=== PATIENT | male | born 1955 | race Caucasian/White ===

== ENCOUNTER 2020-12-01 09:07 | Outpatient (CLI) | payer MEDICARE, SELFPAY ==
--- NOTE | ~2020-12-01 | XR_ITS ---
XR knee RT 3V, XR knee LT 3V 12/01/2020 09:59 Indication: Bilateral knee pain Procedure: 3 views each knee Comparison: No prior studies for comparison. Findings: There is mild bilateral tricompartment osteoarthritis of the knees. No fracture or traumati c malalignment. No significant joint effusion. No focal soft tissue abnormality. Impression: 1: Mild osteoarthritis of the knees. Reviewed, dictated and finalized at location A. Impression: 1: Mild osteoarthritis of the knees. Impression: 1: Mild osteoarthritis of the knees.
--- NOTE | 2020-12-01 09:42 | ECG_ITS ---
Measurements Intervals [place] Rate: 75 P: 51 WI: 170 QRS: -58 QRSD: 92 T: 57 QT: 385 QTc: 432 Interpretive Statements SINUS RHYTHM LEFT ANTERIOR FASCICULAR BLOCK ABNORMAL ECG Electronically Signed On 12-01-2020 10:10:51 CDT by Turner Palumbo D.O.
[2020-12-01 09:43] LABS: Basophils Absolute Auto 0.1 K/mm3 (0.0-0.1); Basophils Percent Auto 0.8 % (0.2-1.2); Eosinophils Absolute Auto 0.3 K/mm3 (0-0.3); Hematocrit 43.9 % (42.0-52.0); Hemoglobin 15.2 g/dL (14.0-18.0); Immature Granulocyte Absolute 0.03 K/mm3 (0.00-0.031); Immature Granulocyte Percent A 0.4 % (0-0.5); Lymphocytes Absolute Auto 2.09 K/mm3 (0.9-3.2); Lymphocytes Percent Auto 28.1 % (18.3-44.2); Mean Corpuscular HGB Conc 34.6 g/dl (32-36); Mean Corpuscular Hemoglobin 30.6 pg (26-34); Mean Corpuscular Volume 88.3 fl (80-100); Mean Platelet Volume 10.8 fl (7.4-10.4); Monocytes Absolute Auto 0.5 K/mm3 (0.1-0.6); Monocytes Percent Auto 6.7 % (2.6-8.5); Neutrophils Absolute Auto 4.5 K/mm3 (1.3-6.7); Platelet Count Result 191 k/mm3 (150-375); Red Blood Count 4.97 M/mm3 (4.6-6.20); Red Cell Distribution Width 13.4 % (11.5-14.5); White Blood Count 7.5 K/mm3 (4.5-10.0)
[2020-12-01 09:59] LABS: Alanine Aminotransferase 44 U/L (4-50); Albumin Level 4.4 g/dL (3.5-5.1); Alkaline Phosphatase 53 U/L (38-126); Anion Gap 6 mmol/L (8-16); Aspartate Amino Transferase 38 U/L (17-59); Bilirubin,Total 0.6 mg/dL (0.2-1.3); Blood Urea Nitrogen 10 mg/dL (9-20); Calcium 9.1 mg/dL (8.4-10.2); Carbon Dioxide 30 mmol/L (22-30); Chloride 106 mmol/L (98-107); Cholesterol 214 mg/dL (0-200); Estimated Glomerular Filt Rate > 60; Glucose 118 mg/dL (75-110); HDL Direct 32 mg/dL; Sodium 142 mmol/L (137-145); Triglycerides 142 mg/dL (<150)
[2020-12-01 10:10] LABS: LDL Cholesterol Direct 152 mg/dL
[2020-12-01 10:14] LABS: Creatinine Urine 283.3 mg/dL
[2020-12-01 10:19] LABS: MALB Creatinine Ratio 8.6 mg/g (0-30); Microalbumin Urine Random 24.4 mg/L (0-16.7)
[2020-12-01 10:30] LABS: Vitamin D 25 Hydroxy 31.8 ng/mL
[2020-12-01 10:31] LABS: Hemoglobin A1C 5.6 % (<5.7)
[2020-12-01 10:32] LABS: Prostate Specific Antigen 1.7 ng/mL (< OR = 4.0)
== END 2020-12-01 09:08 | disposition home or self-care (01) ==
PROVIDERS: PCP Internal Medicine; Visit Provider Internal Medicine
DX: Z12.5 Encounter for screening for malignant neoplasm of prostate (principal); R07.89 Other chest pain; E78.5 Hyperlipidemia, unspecified; M19.90 Unspecified osteoarthritis, unspecified site; R73.01 Impaired fasting glucose; E55.9 Vitamin D deficiency, unspecified; I44.4 Left anterior fascicular block; M17.0 Bilateral primary osteoarthritis of knee; I10 Essential (primary) hypertension
CPT/HCPCS: 36415; 73562; 80053; 80061; 82043; 82306; 83036; 84153; 84443; 85025; 93005; G0103

== ENCOUNTER 2020-12-21 08:15 | Outpatient (CLI) | payer MEDICARE, SELFPAY ==
--- NOTE | ~2020-12-21 | NM_ITS ---
EXAMINATION: NM yessenia stress w perfusion DATE: 12/21/2020 10:30 INDICATION: Chest pain. TECHNIQUE: Rest images were obtained following intravenous administration of 11.170 mCi Tc99m tetrofo smin (Myoview). The patient was infused intravenously with Lexiscan (regadenoson). Then, 33.5 mCi Tc9 9m tetrofosmin (Myoview) was administered intravenously, and stress images were obtained. Data was re constructed into short axis and horizontal and vertical long axis SPECT images. Gated SPECT images we re also obtained. COMPARISON: None. FINDINGS: There is no definite reversible or fixed perfusion abnormality to suggest ischemia or infar ction. There is no segmental wall motion abnormality. Left ventricular ejection fraction measures 6 6%. IMPRESSION: 1. No definite ischemia or infarct. 2. Normal left ventricular ejection fraction measuring 66%. Reviewed, dictated and finalized at location A.
--- NOTE | 2020-12-21 08:36 | EST_ITS ---
Patient Info Name: Hans Gil Age: 65 years : 1955 Gender: Male Ht: 68 in Wt: 250 lbs BSA: 2.38 m2 Exam Date: 12/21/2020 9:20 AM Exam Location: [facility] Stress Patient Status: Outpatient Admit Date: 12/21/2020 Staff Ordering Physician: Tony Love MD Attending Provider: Tony Love MD Exercise Technologist: Sophia Sandoval CT Exercise Physician: Turner Palumbo DO Exam Type: CA stress yessenia w NM Study Info A regadenoson stress test was performed. Summary 1. 1. Negative lexiscan stress test for ischemic ST changes by ECG criteria. 2. 2. Stable hemodynamics throughout the test. 3. 3. Nuclear scan to follow and will be reported separately. Please correlate with it. 4. 4. Patient informed of the above results. Protocol: Lexiscan Stress ECG Details Stage: REST Duration (min): 1 min : 1 sec HR (bpm): 72 SBP (mmHg): 110 DBP (mmHg): 68 Stage: REST Duration (min): 6 min : 55 sec HR (bpm): 70 SBP (mmHg): 110 DBP (mmHg): 68 Stage: STAGE 1 Duration (min): 1 min : 0 sec HR (bpm): 89 SBP (mmHg): 127 DBP (mmHg): 77 Stage: RECOVERY Duration (min): 1 min : 0 sec HR (bpm): 93 SBP (mmHg): 127 DBP (mmHg): 77 Stage: RECOVERY Duration (min): 2 min : 0 sec HR (bpm): 91 SBP (mmHg): 108 DBP (mmHg): 76 Stage: RECOVERY Duration (min): 2 min : 4 sec HR (bpm): 92 SBP (mmHg): 108 DBP (mmHg): 76 Rest HR: 70 bpm Peak HR: 102 bpm Rest Sys BP: 110 mmHg Peak Sys BP: 127 mmHg Max Pred HR: 157 bpm % Max Pred HR: 65 % Target HR: 133 bpm Max RPP: 12,954 bpm*mmHg Termination Reason: Completed protocol Cardiac Symptoms: Shortness of breath Total Time: 1 min : 0 sec Rest Ar[place]aga BP: 68 mmHg Peak [place] BP: 77 mmHg Total Dose: 0.4 mg Resting ECG Sinus rhythm, PRWP. Stress ECG No ST changes. Arrhythmias None. Report Signatures
== END 2020-12-21 08:16 | disposition home or self-care (01) ==
PROVIDERS: PCP Internal Medicine; Visit Provider Internal Medicine
DX: R07.9 Chest pain, unspecified (principal)
CPT/HCPCS: 78452; 93017; A9502; J2785